=== PATIENT | female | born 1990 | race American Indian/Alaskan Native ===

== ENCOUNTER 2016-05-31 22:06 | Outpatient (CLI) | payer MEDICAID ==
[2016-05-31] MEDS ORDERED: LACTATED RINGERS 500 ML IV ONE (23:00)
[2016-05-31] MEDS ORDERED: TYLENOL PO ONE (23:13)
[2016-05-31 23:16] VITALS: BP 145/82
[2016-05-31] MEDS ORDERED: LACTATED RINGERS 1,000 ML ONE (23:22)
[2016-06-01 00:06] LABS: Bilirubin,Urine NEG (Negative); Blood,Urine SM (Negative); Ketones,Urine NEG (Negative); Leukocyte Esterase,Urine NEG (Negative); Nitrite,Urine NEG (Negative); Protein,Urine <15 mg/dL mg/dL (Negative); Urobilinogen,Urine < 2.0 mg/dL (<2.0); WBC,Urine < 1.0 /HPF (0.0-6.0)
[2016-06-01 01:27] LABS: Hematocrit 33.4 % (30.3-42.9); Hemoglobin 10.9 gm/dl (10.1-14.3); Mean Corpuscular HGB Conc 33 % (30-34); Mean Corpuscular Volume 79 fl (79-97); Platelet Count 232 K/mm3 (140-440); Red Blood Count 4.21 M/mm3 (3.65-5.03); Red Cell Distribution Width 17.2 % (13.2-15.2); White Blood Count 9.9 K/mm3 (4.5-11.0)
[2016-06-01 01:32] LABS: Mean Corpuscular Hemoglobin 26 pg (28-32)
--- NOTE | 2016-06-01 03:56 | Ultrasound Report ---
FINAL REPORT PROCEDURE: US OB LIMITED TECHNIQUE: Real-time limited sonographic examination was performed for evaluation of size, position, heartbeat, fluid volume for each fetus with image documentation (1 or more fetuses). CPT 84849 HISTORY: placenta scan COMPARISON: No prior studies are available for comparison. FINDINGS: There is a single live intrauterine gestation. Placenta is posterior and right lateral. There is no previa. Heart rate is 164 beats per minute. IMPRESSION: There is a single live intrauterine gestation. Placenta is posterior and right lateral. There is no previa. Heart rate is 164 beats per minute.
== END 2016-06-01 02:35 | disposition home or self-care (01) ==
LOC: TRG 22:06
PROVIDERS: ATTEND Obstetrics & Gynecology
DX: Z34.92 Encounter for supervision of normal pregnancy, unspecified, second trimester (principal); Z3A.24 24 weeks gestation of pregnancy
CPT/HCPCS: 36415; 59025; 76815; 81001; 85027; 96360; J7120